=== PATIENT | male | born 1995 | race Caucasian/White ===

== ENCOUNTER 2017-06-06 17:16 | Emergency (ER) | payer OTHER ==
[~2017-06-06] VITALS: Ht 170.1 cm; Wt 99.3 kg
[~2017-06-06 17:16] MED LIST: ATARAX25 MG PO; AUGMENTIN ES-6100 ML PO; BACTRIM DS 8001 TA1 PO; BACTROBAN2% TP; CEFADROXIL500 M1 PO; CLARITIN5 MG/5 ML PO; KEFLEX500 MG PO; LOTRIMIN 1%15 GM PO; LOTRIMIN AF1% TP; MEDROL DOSEPAK4 MG PO; MOTRIN600 MG PO; NKHM; PRELONE5 MG/5 ML PO
[2017-06-06 17:38] VITALS: BP 145/85
== END 2017-06-06 18:22 | disposition home or self-care (01) ==
LOC: ED 17:16
DX: S60.211A Contusion of right wrist, initial encounter (principal); W22.8XXA Striking against or struck by other objects, initial encounter; Y93.89 Activity, other specified; Y92.89 Other specified places as the place of occurrence of the external cause; Y99.8 Other external cause status